=== PATIENT | female | born 1945 ===

== ENCOUNTER 2017-08-24 14:02 | Outpatient (CLI) | payer OTHER | END 2017-08-24 15:02 | disposition home or self-care (01) | LOC: MAMO-SONO 14:02 | DX: Z12.31 Encounter for screening mammogram for malignant neoplasm of breast (principal); Z87.898 Personal history of other specified conditions; N60.11 Diffuse cystic mastopathy of right breast; N60.12 Diffuse cystic mastopathy of left breast ==

== ENCOUNTER 2018-05-02 10:46 | Outpatient (CLI) | payer OTHER | END 2018-05-02 14:56 | disposition home or self-care (01) | LOC: RAD 10:46 | DX: J20.9 Acute bronchitis, unspecified (principal) ==

== ENCOUNTER → 2020-02-09 | Outpatient (CLI) | payer OTHER | END | disposition home or self-care (01) | LOC: NUCLEAR 13:54 | PROVIDERS: ATTEND Physical Medicine & Rehabilitation | DX: M81.0 Age-related osteoporosis without current pathological fracture (principal) ==

== ENCOUNTER 2025-02-21 09:31 | Outpatient (CLI) | payer OTHER | END 2025-02-21 09:34 | disposition home or self-care (01) | LOC: RAD 09:31 | DX: M25.571 Pain in right ankle and joints of right foot (principal) ==